=== PATIENT | male | born 1975 | race Two or more races ===

== ENCOUNTER 2020-01-01 17:28 | Outpatient (AMBR) | payer OTHER, SELFPAY ==
--- NOTE | 2019-12-07 15:23 | PT.OIERPT ---
PT OP Initial Eval Patient Information Visit Reasons: back pain Medical Diagnosis: M54.5, M54.15 Treatment Dx #1: back pain Start of Care: 12/07/19 Date of Onset: Aug 2019 Initial Assessment Subjective Pt is 44 yr old yakut speaking male who c/o intense LBP since August. He points to the L/S and 8/10 pain that is variable. He works doing field work and driving truck. Increased pain with bending fwd, lifting and twisting. PMH: none reported Imaging: with provider Pt goal: to get rid of the back pain in order to work Objective Trunk ArOM: B SB 50% Extension: 30% with pain around L5-S1 on R side Flexion: 10% with increased LBP and posterior thigh pain B rotation: 50% R SLR ROM: 55 deg with posterior knee neural tension and LBP. LE strength: B hamstrings: 4-/5 Quads 4/5 Hip abd/add 4/5 SLR: negative B TTP: moderate R paraspinals L3-4, 4-5 lumbar paraspinal atrophy Assessment Pt presents with trunk ROM limitations and flexion sensitivity. Pt has neural tension along sciatic pathway. These findings are consistent with possible lumbar disc irritation with LE radiculopathy. Pt was taught HEP and given materials. PT recommends further diagnostic imaging of L/S such as MRI. Short Term and Custodial Goals 1. Ind with HEP 2. Improved B quad and hamstring strength to 4+/5 3. Pt will improve HH chore tolerance to 30 minutes 4. Decreased muscle spasm and TTP of lumbar paraspinals from mod to min Treatment Plan 1. Manual therapy 2. Therex 3. Modalities as indicated, moist heat pack, ice, electrical stimulation, mechanical traction Frequency and Duration 2x a week for 6 weeks Certification Dates: 12/07/19 to 03/04/20 Office Procedures PT Procedures PT Date of Service: 12/07/19 OP PT Eval Mod Complex 30 minutes: Yes
--- NOTE | 2019-12-13 18:28 | PT.ODAYNRPT ---
PT Outpatient Daily Note Date of Service: December 13, 2019 OP Daily Note Visit Reasons: back pain Outpatient Physical Therapy Treatment Date: 12/13/19 Subjective: Same as time of eval Objective: See F/S for therex Mechanical traction L/S x' at 20 lbs Assessment: Good response to traction and prone progression with low tissue irritability today. Plan: Continue per POC Length of Time (minutes) of Treatment: 30 Minutes Office Procedures PT Procedures PT Date of Service: 12/07/19 OP PT Eval Mod Complex 30 minutes: Yes PT Procedures PT Date of Service: 12/13/19 Therapeutic Exercise 30 minutes: Yes
--- NOTE | 2019-12-26 18:17 | PT.ODAYNRPT ---
PT Outpatient Daily Note Date of Service: December 26, 2019 OP Daily Note Visit Reasons: back pain Outpatient Physical Therapy Treatment Date: 12/26/19 Subjective: Not sore after last visit but didn't feel much improvement in LBP Objective: See F/S for therex Mechanical traction L/S x7' at 20 lbs Assessment: Good response to traction and prone progression with low tissue irritability today. Plan: Continue per POC Length of Time (minutes) of Treatment: 30 Minutes Office Procedures PT Procedures PT Date of Service: 12/07/19 OP PT Eval Mod Complex 30 minutes: Yes PT Procedures PT Date of Service: 12/13/19 Therapeutic Exercise 30 minutes: Yes PT Procedures PT Date of Service: 12/26/19 Therapeutic Exercise 30 minutes: Yes
--- NOTE | 2020-01-01 18:44 | PT.ODAYNRPT ---
PT Outpatient Daily Note Date of Service: January 01, 2020 OP Daily Note Visit Reasons: back pain Outpatient Physical Therapy Treatment Date: 01/01/20 Subjective: Not much change since starting therapy in ssx. He has pain in the morning that lessens as he warms up and starts working. Objective: See F/S for therex Mechanical traction L/S x7' at 20 lbs Assessment: Good response to traction and prone progression with low tissue irritability today for temporary relief but no long-term relief so far. Plan: Continue per POC Length of Time (minutes) of Treatment: 30 Minutes Office Procedures PT Procedures PT Date of Service: 12/07/19 OP PT Eval Mod Complex 30 minutes: Yes PT Procedures PT Date of Service: 12/13/19 Therapeutic Exercise 30 minutes: Yes PT Procedures PT Date of Service: 12/26/19 Therapeutic Exercise 30 minutes: Yes PT Procedures PT Date of Service: 01/01/20 Therapeutic Exercise 30 minutes: Yes
== END 2020-01-01 23:59 | disposition home or self-care (01) ==
PROVIDERS: PCP Family Medicine; Referring Provider Family Medicine; Visit Provider Physician Assistant
DX: M54.5 Low back pain (principal); M54.15 Radiculopathy, thoracolumbar region
CPT/HCPCS: 97110; 97162

== ENCOUNTER 2020-01-03 17:31 | Outpatient (AMBR) | payer OTHER, SELFPAY ==
--- NOTE | 2020-01-03 18:35 | PT.ODS1RPT ---
PT OP Progress/Discharge Note Date of Service: January 03, 2020 Progress Note/DC Note Progress Note/Discharge Note: DC Note Patient Information Visit Reasons: back pain Service Continue Service or Discharge: Discharge Discharge Date: 01/03/20 Status Subjective: Not much change since starting therapy in ssx. He has pain in the morning that lessens as he warms up and starts working. Objective: See F/S for therex Mechanical traction L/S x7' at 20 lbs Objective findings are the same as the evaluation. Assessment: Pt has attended 4 Rx visits with limited progress with therapy goals due to continued LBP. He has good response to traction and prone progression for temporary relief for the rest of the day after therapy but the pain returns by morning. PT recommends further diagnostic imaging such as MRI of L/S. Plan: Pt is discharged to provider for further workup. Office Procedures PT Procedures PT Date of Service: 01/03/20 Therapeutic Exercise 30 minutes: Yes
--- NOTE | 2020-02-13 07:34 | PTNOTE_ITS ---
PT Outpatient Daily Note Date of Service: January 01, 2020 OP Daily Note Visit Reasons: back pain Outpatient Physical Therapy Treatment Date: 01/01/20 Subjective: Not much change since starting therapy in ssx. He has pain in the morning that lessens as he warms up and starts working. Objective: See F/S for therex Mechanical traction L/S x7' at 20 lbs Assessment: Good response to traction and prone progression with low tissue irritability today for temporary relief but no long-term relief so far. Plan: Continue per POC Length of Time (minutes) of Treatment: 30 Minutes Office Procedures PT Procedures PT Date of Service: 12/07/19 OP PT Eval Mod Complex 30 minutes: Yes PT Procedures PT Date of Service: 12/13/19 Therapeutic Exercise 30 minutes: Yes PT Procedures PT Date of Service: 12/26/19 Therapeutic Exercise 30 minutes: Yes PT Procedures PT Date of Service: 01/01/20 Therapeutic Exercise 30 minutes: Yes MTDD
== END 2020-01-30 23:59 | disposition home or self-care (01) ==
PROVIDERS: PCP Family Medicine; Referring Provider Family Medicine; Visit Provider Physician Assistant
DX: M54.5 Low back pain (principal); M54.15 Radiculopathy, thoracolumbar region
CPT/HCPCS: 97110

== ENCOUNTER 2021-09-09 17:31 | Outpatient (AMBR) | payer OTHER, SELFPAY ==
--- NOTE | 2021-09-09 18:20 | PT.ODS1RPT ---
PT OP Progress/Discharge Note Date of Service: 09/09/21 Progress Note/DC Note Progress Note/Discharge Note: DC Note Patient Information Visit Reasons: lumbar Treatment Dx #1: LBP Service Continue Service or Discharge: Discharge Discharge Date: 09/09/21 Status Subjective: Pt reports his back feels the same as before therapy. It hurts in the morning until he starts moving and warms up and then the pain lessens. Objective: Trunk ArOM: B SB: 50% Extension: 30% with pain Flexion: 8 from floor B rotation; 50% Assessment: Pt has attended the eval and 8 Rx sessions with limited progress with therapy goals due to continued LBP. Pt has good core activation but objective findings of trunk ROM are unchanged despite manual therapy, prone progression and mechanical traction interventions. He has not met therapy goals because of this. Plan: Pt is discharged to provider for further workup Office Procedures PT Treatments PT Date of Service: 09/09/21 Therapeutic Exercise 30 minutes: Yes
== END 2021-09-30 23:59 | disposition home or self-care (01) ==
PROVIDERS: PCP Nurse Practitioner Primary Care; Referring Provider Nurse Practitioner Primary Care; Visit Provider Orthopaedic Surgery Orthopaedic Surgery of the Spine
DX: M48.061 Spinal stenosis, lumbar region without neurogenic claudication (principal); M54.50 Low back pain, unspecified
CPT/HCPCS: 97110